=== PATIENT | female | born 1985 | race Caucasian/White ===

== ENCOUNTER 2016-07-14 11:54 | Emergency (ER) | payer SELFPAY ==
[~2016-07-14] VITALS: Ht 154.9 cm; Wt 68.0 kg
[2016-07-14 11:57] VITALS: BP 118/79
--- NOTE | 2016-07-14 12:02 | NUR ---
30/ BIB SELF C/O ANXIETY, HEADACHE X1DAY. PATIENT DENIES N/V/D; SKIN IS PINK/WARM/DRY; AAOX4 WITH EVEN AND STEADY GAIT; LUNGS CLEAR BL; HR EVEN AND REGULAR; PT DENIES ANY FEVER, CP, SOB, OR COUGH AT THIS TIME; PATIENT STATES PAIN OF 7/10 AT THIS TIME; VSS; PATIENT POSITIONED FOR COMFORT; HOB ELEVATED; BEDRAILS UP X2; BED DOWN. ER MD MADE AWARE OF PT STATUS.
[2016-07-14] MEDS ORDERED: LORazepam 1 MG TAB PO ONE (12:10)
[2016-07-14 13:06] VITALS: BP 118/79
--- NOTE | 2016-07-14 13:06 | NUR ---
Patient discharged with v/s stable. Written and verbal after care instructions given and explained. Patient verbalized understanding. Ambulatory with steady gait. All questions addressed prior to discharge. Advised to follow up with PMD.
== END 2016-07-14 13:06 | disposition home or self-care (01) ==
LOC: MED 11:54
DX: F41.1 Generalized anxiety disorder (principal)
CPT/HCPCS: 81002; 81025; 99284